=== PATIENT | male | born 1975 | race African-American/Black ===

== ENCOUNTER 2017-11-25 20:10 | Inpatient (IN) | payer MEDICAID ==
[~2017-11-25] VITALS: Ht 190.5 cm; Wt 59.4 kg
--- NOTE | 2017-11-25 21:26 | NUR ---
BEDSIDE FOR EVAL
--- NOTE | 2017-11-25 21:30 | NUR ---
PT BBSELF FROM HOME C/C RIGHT SIDED CHEST PAIN RADIATING TO THE BACK X 5 DAYS. PT STATES HE HAS BEEN HAVING A NON PRODUCTIVE COUGH X5 DAYS. PT IS AAOX4. SKIN WNL. PT DENIES SOB. NO S/S OF ACUTE DISTRESS NOTED. RESPIRATIONS EVEN AND UNLABORED. PT PLACED ON MEDICAL FRONT DESK COORDINATOR AND POX. PT SAFETY AND COMFORT MEASURES IN PLACE. WILL CONTINUE TO MONITOR PT.
[2017-11-25] MEDS ORDERED: oxyCODONE/APAP (5/325 MG) 1 UDTAB TABLET ONE (21:40)
[2017-11-25] MEDS ORDERED: IBUPROFEN 600 MG TABLET PO ONE ×2 (21:40→22:00)
[2017-11-25] MEDS ORDERED: oxyCODONE/APAP (5/325 MG) 1 UDTAB TABLET PO ONE (22:00)
[2017-11-25] MEDS ORDERED: FENTANYL PF 100MCG/2ML AMPUL IV ONE (22:00)
--- NOTE | 2017-11-25 22:02 | NUR ---
PER MD'S REQUEST, CHEST TUBE BEING SET UP BY EMT MELINA
[2017-11-25] MEDS ORDERED: FENTANYL PF 100MCG/2ML AMPUL ONE (22:08)
--- NOTE | 2017-11-25 22:15 | NUR ---
DR BALDWIN ACCEPTED PATIENT PER Fadumo HUYNH
--- NOTE | 2017-11-25 22:27 | NUR ---
CALLED NURSING SUP REQUESTING [facility] BED
--- NOTE | 2017-11-25 22:47 | NUR ---
PT ADMIT TO ROOM 104 PR[facility]
[2017-11-25] MEDS ORDERED: Z GUARD REMEDY 2 OZ OINT TP PRN (23:30)
[2017-11-25] MEDS ORDERED: MAGNESIUM HYDROXIDE 30 ML UDC PO PRN (23:30)
[2017-11-25] MEDS ORDERED: MAG HYDROX/AL HYDROX/SIMETH 30 ML UDC PO PRN (23:30)
[2017-11-25 23:39] LABS: BASOPHILS # (AUTO) 0.1 /CMM (0.0-0.2); BASOPHILS % (AUTO) 0.6 % (0.0-2.0); EOSINOPHILS % (AUTO) 0.3 % (0.0-6.0); HEMATOCRIT 37 % (39-51); LYMPHOCYTES # (AUTO) 0.9 /CMM (0.8-4.8); LYMPHOCYTES % (AUTO) 6.9 % (20.0-44.0); MEAN CORPUSCULAR HGB CONC 35 g/dl (31.0-36.0); MEAN CORPUSCULAR VOLUME 94 fL (80-96); MONOCYTES # (AUTO) 0.3 /CMM (0.1-1.30); MONOCYTES % (AUTO) 2.3 % (2.0-12.0); NEUTROPHILS % (AUTO) 89.9 % (43.0-81.0); PLATELET COUNT (AUTO) 180 /CMM (150-450); RED BLOOD CELL COUNT(AUTO) 3.98 MIL/uL (4.5-6.0); WHITE BLOOD COUNT (AUTO) 13.4 K/uL (4.3-11.0)
[2017-11-25] MEDS ORDERED: IOHEXOL-300 100 ML VIAL IV ONE (23:40)
[2017-11-25] MEDS ORDERED: CT SWABBABLE VALVE TRANS SET 1 EA INFUS.SET MC ONE (23:40)
[2017-11-25] MEDS ORDERED: IV NS 0.9% 250 ML IV ONE (23:41)
[2017-11-25 23:50] LABS: CALCIUM, SERUM 9.2 mg/dL (8.5-10.1); CARBON DIOXIDE 28 mmol/L (21-32); CHLORIDE 105 mmol/L (98-107); CREATININE 1.1 mg/dL (0.6-1.3); GLUCOSE 102 mg/dL (74-106); POTASSIUM 3.8 mmol/L (3.5-5.1); SODIUM SERUM 141 mmol/L (136-145); UREA NITROGEN, BLOOD 10 mg/dL (7-18)
[2017-11-25 23:52] LABS: INR 1.09 (0.87-1.13)
[2017-11-26] VITALS (46 sets, daily range): BP systolic 48–188; BP diastolic 18–118
[2017-11-26] LABS: TROPONIN I < 0.017 ng/mL (0.00-0.056)
[2017-11-26] MEDS ORDERED: VANCOMYCIN 1.25 GM in IV D5W 500 ML IV ONE (00:30)
[2017-11-26] MEDS ORDERED: HYDROMORPHONE 1 MG/1 ML DISP.SYRIN IV STA (01:29)
[2017-11-26] MEDS ORDERED: HYDROMORPHONE 1 MG/1 ML DISP.SYRIN ONE (01:46)
--- NOTE | 2017-11-26 02:01 | NUR ---
REPORT GIVEN TO PRASHANT MAJOR FOR LEIDY
--- NOTE | 2017-11-26 03:00 | NUR ---
PT REQUESTING FLU VACCINE, WILL NOTIFY
--- NOTE | 2017-11-26 03:47 | NUR ---
SPOKE TO MD BALDWIN, AWARE OF PT'S VS, HR IN 40'S, SB ON TELE MONITOR, VANCO 1.25 MG IVPB NOT AVAILABLE, MD WITH NEW ORDERS OF CHANGE VANCO TO 1GM FOLLOW BY PHARMACY TO DOSE IN AM, MORPHINE 2MG IVP Q 6HRS PRN, CONTINUE CHEST TUBE TO CONTINUOUS SUCTIONING 20 CM OF WATER, [facility] CHANGED, CHEST TUBE DRAINING BLOOD. PT DENIES PAIN OR DISCOMFORT AT THIS TIME. GIRLFRIEND AT BEDSIDE.
[2017-11-26] MEDS ORDERED: MORPHINE SULFATE INJ 2 MG/ML DISP.SYRIN IV PRN (04:00)
[2017-11-26] MEDS ORDERED: VANCOMYCIN 1 GM in IV D5W 250 ML IV ONE (04:00)
[2017-11-26] MEDS ORDERED: VANCOMYCIN 1 GM VIAL ONE (04:12)
[2017-11-26] MEDS ORDERED: CEFEPIME 2 GM in IV NS 0.9% 50 ML IV SCH (05:00)
--- NOTE | 2017-11-26 06:14 | NUR ---
MAXIPIME IVPB DUE AT 5 AM NOT AVAILABLE PER NURSING MOCK UP ASSEMBLER, WILL BE ADMINISTERED BY AM SHIFT.
[2017-11-26 06:40] LABS: BASOPHILS % (AUTO) 0.2 % (0.0-2.0); EOSINOPHILS % (AUTO) 0.1 % (0.0-6.0); HEMATOCRIT 33 % (39-51); HEMOGLOBIN 11.1 g/dL (13.5-17.5); LYMPHOCYTES # (AUTO) 0.9 /CMM (0.8-4.8); LYMPHOCYTES % (AUTO) 5.9 % (20.0-44.0); MEAN CORPUSCULAR HGB CONC 34 g/dl (31.0-36.0); MEAN CORPUSCULAR VOLUME 94 fL (80-96); MONOCYTES # (AUTO) 0.7 /CMM (0.1-1.30); MONOCYTES % (AUTO) 4.9 % (2.0-12.0); NEUTROPHILS # (AUTO) 13.4 /CMM (1.8-8.9); NEUTROPHILS % (AUTO) 88.9 % (43.0-81.0); PLATELET COUNT (AUTO) 199 /CMM (150-450); RDW COEFFICIENT OF VARIATION 13.5 (11.5-15.0); WHITE BLOOD COUNT (AUTO) 15.1 K/uL (4.3-11.0)
--- NOTE | 2017-11-26 07:05 | NUR ---
PRASH[facility] RN NOTES RECEIVED PT ON BED.ALERT AND ORIENTED X4.HAS CONTINUOS 2L O2 VIA NASAL CANNULA WITH UNLABORED BREATHING.ON TELE SINUS RHYTHM WITH HR 75,IV CANNULA ON LEFT AC G18 ,DRY,INTACT AND NO INFILTRATION.HAS CHEST TUBE ON RIGHT LOWER RIB WITH LOW CONTINUOS 20CM H20 SUCTION,SITE CLEAN AND DRY.SUPPORTIVE FAMILY IS AT BEDSIDE.CALL LIGHT IS WITH IN EASY REACH. BED IS IN LOWEST POSITION AND LOCKED.WILL CONTINUE TO MONITOR CLOSELY.
[2017-11-26 07:07] LABS: ALBUMIN 3.6 g/dL (3.4-5.0); BILIRUBIN,TOTAL 1.1 mg/dL (0.2-1.0); CALCIUM, SERUM 8.3 mg/dL (8.5-10.1); CREATININE 1.2 mg/dL (0.6-1.3); MAGNESIUM 1.7 mg/dL (1.8-2.4); PHOSPHORUS 4.2 mg/dL (2.5-4.9); POTASSIUM 4.2 mmol/L (3.5-5.1); TOTAL PROTEIN, SERUM 6.3 g/dL (6.4-8.2)
[2017-11-26] MEDS: HYDROCODONE/APAP 5/325MG 1 EACH TABLET PO PRN ×2 (08:02→12:27)
[2017-11-26] MEDS ORDERED: FEE PK DOSING 1 MIN EA MC ONE (08:11)
[2017-11-26] MEDS ORDERED: MORPHINE SULFATE INJ 4 MG/ML DISP.SYRIN IV PRN (08:14)
[2017-11-26] MEDS: ONDANSETRON HCL/PF 4 MG/2 ML VIAL IVP PRN (08:41)
[2017-11-26] MEDS: Magnesium 1GM/D5W 100ML PREMIX 100 ML IV SCH ×4 (10:35→23:45)
--- NOTE | 2017-11-26 10:35 | NUR ---
[facility] RN NOTES NOTED WITH MG-1.7.DR JAYA ABEL ORDERED TO GIVE MAGNESIUM IV 2GM @100 ML/HR EACH.STARTED IV MAGNESIUM 1GM NOW.
--- NOTE | 2017-11-26 10:54 | NUR ---
PRASH[facility] RN NOTES PT SCHEDULED FOR FLU VACCINE TODAY. PER DR.LAURENE ABEL,HOLD FLU VACCINE NOW.NEW ORDERS NOTED AND CARRIED OUT.
--- NOTE | 2017-11-26 13:00 | NUR ---
RN NOTES PT IS A/O x4, BUT DIAPHORETIC, O2 SAT 100%, BP =97/46, T-97.6, R 27, ARIELLE CONSUMER ADVOCATE NOTIFED , ABOUT 650CC LIGHT BLOODY DRAINAGE FROM CHEST TUBE, CONTINUE TO MONITOR
[2017-11-26] MEDS: CEFEPIME 2 GM in IV D5W 100 ML IV SCH ×2 (13:08→20:05)
--- NOTE | 2017-11-26 13:19 | NUR ---
RN NOTES ORDER RECEIVED TO TRANSFER PT TO ICU AT THIS TIME FOR CLOSE OBSERVATION .
[2017-11-26] MEDS: IV NS 0.9% 1,000 ML IV SCH ×2 (13:30→19:06)
[2017-11-26 13:37] LABS: ABG BASE EXCESS -1.9 mmol/L; ABG PCO2 43.6 mmHg (35.0-45.0); ABG PH 7.353 (7.350-7.450); ABG PO2 116.4 mmHg (75.0-100.0); AaDO2 118.7 mmHg; COHb 0.2 % (0.5-1.5); MetHb 0.7 % (0.0-1.5); O2Hb 96.1 % (94.0-97.0); SITE, ABG Right Radial; VENT MODE, BG NASAL CANNULA
--- NOTE | 2017-11-26 13:40 | NUR ---
RN NOTES PT TRANSFERRED TO ROOM 259 ICU STATUS , VIA ACLS PROTOCOL , REPORT GIVEN TO ROMEO PALAFOX .
--- NOTE | 2017-11-26 13:45 | NUR ---
PHARMACIST HOSPITAL RECEIVED PATIENT FROM [facility]. PATIENT NOTED TO BE HYPOTENSIVE, DIAPHORETIC, BUT ALERT TO VERBAL COMMAND. SPLUNK DASHBOARD DEVELOPER AT BEDSIDE. CHEST TUBE TO WALL SUCTION. ARNETT DRAINING URINE TO GRAVITY. RAPID TRANSFUSION PROTOCOL INITIATED. IV FLUIDS RUNNING FOR BP SUPPORT. TO BE SEEN BY DIGITAL PERFORMANCE ANALYST AND SURGEON. WILL CONTINUE TO MONITOR AND PROVIDE CARE.
[2017-11-26 13:46] LABS: BASOPHILS # (AUTO) 0.1 /CMM (0.0-0.2); BASOPHILS % (AUTO) 0.3 % (0.0-2.0); EOSINOPHILS % (AUTO) 0.1 % (0.0-6.0); HEMATOCRIT 31 % (39-51); LYMPHOCYTES # (AUTO) 1.2 /CMM (0.8-4.8); LYMPHOCYTES % (AUTO) 6.3 % (20.0-44.0); MEAN CORPUSCULAR HGB CONC 33 g/dl (31.0-36.0); MEAN CORPUSCULAR VOLUME 95 fL (80-96); MONOCYTES # (AUTO) 0.7 /CMM (0.1-1.30); MONOCYTES % (AUTO) 3.7 % (2.0-12.0); NEUTROPHILS # (AUTO) 16.6 /CMM (1.8-8.9); NEUTROPHILS % (AUTO) 89.6 % (43.0-81.0); PLATELET COUNT (AUTO) 192 /CMM (150-450); RED BLOOD CELL COUNT(AUTO) 3.25 MIL/uL (4.5-6.0); WHITE BLOOD COUNT (AUTO) 18.5 K/uL (4.3-11.0)
[2017-11-26] MEDS ORDERED: IV NS 0.9% 1,000 ML IV PRN ×2 (14:00→16:00)
[2017-11-26] MEDS ORDERED: NOREPINEPHRINE 16 MG in IV D5W 500 ML IV PRN (14:00)
--- NOTE | 2017-11-26 14:00 | NUR ---
ICU/RN: Tomasa Muñoz NP gave primary and discharge door operator bedside report. Pt hypotensive, ST in 130-140; blood products and IV resuscitation fluids ordered. Pt diaphoretic, with rigors. Pulses on extremities strong and palpable. IV HL inserted on L FA #20 with NS infusing. Pt on 1:1 monitoring as ordered.
--- NOTE | 2017-11-26 14:02 | NUR ---
PER ARIELLE ABEL GIVE 2L NS BOLUS WIDE OPEN. ORDER FOR ARTERIAL LINE. ORDER LEVOPHED FOR LOW BLOOD PRESSURE. COLTEN AT BEDSIDE.
[2017-11-26] MEDS ORDERED: FENTANYL PF 100MCG/2ML AMPUL IV PRN (14:30)
[2017-11-26] MEDS ORDERED: FENTANYL PF 100MCG/2ML AMPUL IV STA (14:32)
[2017-11-26] MEDS ORDERED: LIDOCAINE 2%-EPI 1:100,000 30 ML VIAL TP STA (14:35)
--- NOTE | 2017-11-26 15:00 | NUR ---
ICU/RN: Pt s/p A-line, central line insertion by Escobar Monroy. Pt tolerated procedure well. Ongoing blood transfusion and NS bolus via Rapid infusion. No adverse reactions noted. Pt remains in ST 130-140's with initial BP in 50's. Levophed on standby per KALANI Muñoz. Dr Meng and Dr Klein examined pt. New orders noted and carried out.
[2017-11-26 15:16] LABS: ABG BASE EXCESS -9.2 mmol/L; ABG PCO2 42.9 mmHg (35.0-45.0); ABG PH 7.233 (7.350-7.450); ABG PO2 138.5 mmHg (75.0-100.0); AaDO2 242.1 mmHg; COHb 0.2 % (0.5-1.5); MetHb 1.1 % (0.0-1.5); O2Hb 95.7 % (94.0-97.0); SITE, ABG A-Line
[2017-11-26 15:21] LABS: HEMOGLOBIN 7.6 g/dL (13.5-17.5)
[2017-11-26] MEDS ORDERED: MEPERIDINE HCL/PF 50 MG/ML DISP.SYRIN IV ONE (15:30)
[2017-11-26] MEDS ORDERED: VANCOMYCIN 1.25 GM in IV D5W 500 ML IV SCH (16:00)
[2017-11-26] MEDS ORDERED: IV NS 0.9% 1,000 ML IV STA (16:03)
[2017-11-26 16:15] LABS: LYMPHOCYTES % (MANUAL) 5 % (16-48); MONOCYTES % (MANUAL) 6 % (0-11.0); NEUTROPHILS % (MANUAL) 89 (42-76)
[2017-11-26 16:45] LABS: BASOPHILS % (AUTO) 0.1 % (0.0-2.0); HEMATOCRIT 27 % (39-51); LYMPHOCYTES # (AUTO) 0.3 /CMM (0.8-4.8); MEAN CORPUSCULAR HGB CONC 33 g/dl (31.0-36.0); MEAN CORPUSCULAR VOLUME 92 fL (80-96); MONOCYTES # (AUTO) 0.6 /CMM (0.1-1.30); MONOCYTES % (AUTO) 5.7 % (2.0-12.0); NEUTROPHILS % (AUTO) 91.2 % (43.0-81.0); RDW COEFFICIENT OF VARIATION 14.1 (11.5-15.0); RED BLOOD CELL COUNT(AUTO) 2.99 MIL/uL (4.5-6.0); WHITE BLOOD COUNT (AUTO) 9.9 K/uL (4.3-11.0)
[2017-11-26 16:55] LABS: PLATELET COUNT (AUTO) 63 /CMM (150-450)
--- NOTE | 2017-11-26 16:57 | NUR ---
PER ARIELLE ABEL ORDER 1 UNIT PLATELETS S/T PLATELET COUNT OF 63.
--- NOTE | 2017-11-26 17:45 | NUR ---
ICU/RN: Pt sent to surgery in stable condition: S/P infusion of 12 L NS Bolus, 6 Unit PRBC, 3 FFP, 1 unit platelet; Tomasa Muñoz BODY AND FENDER WORKER at bedside. Pt now awake, alert, drowsy, denies pain or distress, on O2 2L/min via NC. R subclavian TLC patent, flushed, NS @ 75cc/hr running. A-line zero'd calibrated per protocol with good waveform. FC draining clear yellow urine to gravity with 1300cc out pre-op. Total of 560cc sanguineous CT output. Pt seen and examined prior to Sx by: Dr Meng - latest labs, transfusion totals, poc discussed with MD with Wanda, KALANI Burgos - pt agreeable to surgery, poc discussed extensively with pt. note: last unit of PRBC verified and scanned - however did not save into [facility]. Override noted in system with RN who previously verified blood product with primary RN. Addendum: 11/26/17 at 1920 by MARQUES BECKWITH RN Per KALANI Muñoz: "No need to administer remaining blood products. Transfuse only a total of 6U PRBC, 3 FFP, 1U Plt, keep remaining blood products for standby for OR."
[2017-11-26] MEDS: IV NS 0.9% 1,000 ML IV PRN ×7 (17:47→17:54)
--- NOTE | 2017-11-26 18:57 | NUR ---
RN NOTES RECEIVED PATIENT ALERT, AWAKE, DIAPHORETIC, RESPOND TO BOTH VERBAL AND TACTILE STIMULI. TELE MONITOR REVEALS ST, WN=[phone]'[id number], SBP=80'S. ARIELLE URIARTE AT BEDSIDE. IV L HAND PATENT AND INTACT. RUNNING IVF PER ORDER. RECEIVED NEW ORDER OF BLOOD TRANSFUSION AND IV RESUSCITATION. WILL CONT TO MONITOR. Addendum: 11/26/17 at 1904 by ROMEO COELLO RN NOTES TIME 1400.
--- NOTE | 2017-11-26 19:15 | NUR ---
ICU/RN: Report given to Kings, RN for LEIDY. Updated regarding surgery. Endorsed to f/u Vanco dose [unable to administer dt ongoing boluses and blood tx, surgery].
[2017-11-26] MEDS ORDERED: PROPOFOL 100 ML ONE (19:29)
--- NOTE | 2017-11-26 19:39 | NUR ---
PACKAGING ENGINEER NOTES RECEIVED PATIENT FROM OR, S/P RIGHT SIDE VATS, EVACUATION OF HEMOTHORAX + RUL BLEB RESECTION. R CHEST TUBE REMAINS IN PLACE, DRAINING SANGUINOUS OUTPUT, CONNECTED TO SUCTION ORDERED. RIGHT SUBCLAVIAN TLC PATENT AND INTACT, INITIATED ON CVP MONITORING. ALSO INFUSING DIPRIVAN, WILL CONTINUE HERE IN ICU AND TITRATE NEEDED. ALSO NOTED WITH RIGHT FEMORAL ARTERIAL LINE. WILL CARRY OUT ALL POSTOP ORDERS AND CLOSELY MONITOR
[2017-11-26] MEDS: HYDROMORPHONE 1 MG/1 ML DISP.SYRIN IV PRN ×2 (19:46→22:29)
[2017-11-26] MEDS ORDERED: HYDROMORPHONE 1 MG/1 ML DISP.SYRIN IV PRN (20:00)
[2017-11-26] MEDS: PROPOFOL 100 ML IV PRN ×2 (20:06→22:40)
--- NOTE | 2017-11-26 20:27 | NUR ---
@1943 RECEIVED PT FROM O.R. PT IS ORALLY INTUBATED WITH 8.0 ETT SECURED AT 26CM AT THE LIP. RN AND MD AT BEDSIDE. PLACED ON VENT PER HRONEYoko, SETTINGS AC 12,600,100%,+5. VENT ALARMS SET AND AUDIBLE. AMBU BAG AT BEDSIDE. ETT SECURED VIA ANCHOR FAST. WILL CONTINUE TO MONITOR.
--- NOTE | 2017-11-26 20:40 | NUR ---
EMERGENCY NURSE NOTES RECEIVED CALL FROM AMINTA MAKI DNP. UPDATE GIVEN REGARDING PATIENTS CONDITION. AMINTA MAKI WITH ORDERS FOR STAT LABS: CBC, CMP, MAGNESIUM, PHOSPHOROUS, AND FIBRINOGEN LEVEL. ORDERS READ BACK FOR CLARIFICATION. WILL CARRY OUT ALL NEW ORDERS AND CONTINUE TO CLOSELY MONITOR THE PATIENT
[2017-11-26 20:50] LABS: ABG BASE EXCESS -7.1 mmol/L; ABG OXYGEN SATURATION 98.1 % (92.0-98.5); ABG PH 7.236 (7.350-7.450); ABG PO2 229.2 mmHg (75.0-100.0); AaDO2 434.8 mmHg; COHb 0.3 % (0.5-1.5); MetHb 0.9 % (0.0-1.5); O2Hb 96.9 % (94.0-97.0); PEEP,BG 5 cm H2O; SITE, ABG A-Line
--- NOTE | 2017-11-26 20:51 | NUR ---
POST ABG ON VENT DONE. RN NOTIFIED WITH THE RESULT.
--- NOTE | 2017-11-26 21:15 | NUR ---
TESTER REGULATOR NOTES ABG RESULTS RELAYED TO AMINTA MAKI DNP. RECEIVED ORDER TO INCREASE RATE TO 16, AND DECREASE FIO2 TO 70%. RT DENYS MADE AWARE OF ORDERS FOR VENT CHANGES.
--- NOTE | 2017-11-26 21:18 | NUR ---
RATE CHANGED TO 16 AND FIO2 TO 70% PER DR MAKI. RN NOTIFIED.
[2017-11-26 21:21] LABS: BASOPHILS # (AUTO) 0.1 /CMM (0.0-0.2); BASOPHILS % (AUTO) 0.5 % (0.0-2.0); HEMATOCRIT 32 % (39-51); HEMOGLOBIN 10.9 g/dL (13.5-17.5); LYMPHOCYTES # (AUTO) 0.4 /CMM (0.8-4.8); LYMPHOCYTES % (AUTO) 2.8 % (20.0-44.0); MEAN CORPUSCULAR HGB CONC 34 g/dl (31.0-36.0); MEAN CORPUSCULAR VOLUME 89 fL (80-96); MONOCYTES # (AUTO) 0.5 /CMM (0.1-1.30); MONOCYTES % (AUTO) 3.8 % (2.0-12.0); NEUTROPHILS % (AUTO) 92.9 % (43.0-81.0); PLATELET COUNT (AUTO) 83 /CMM (150-450); RDW COEFFICIENT OF VARIATION 13.5 (11.5-15.0); RED BLOOD CELL COUNT(AUTO) 3.61 MIL/uL (4.5-6.0)
[2017-11-26 21:51] LABS: ALBUMIN 2.5 g/dL (3.4-5.0); BILIRUBIN,TOTAL 0.7 mg/dL (0.2-1.0); CALCIUM, SERUM 6.3 mg/dL (8.5-10.1); MAGNESIUM 1.4 mg/dL (1.8-2.4); PHOSPHORUS 2.7 mg/dL (2.5-4.9); POTASSIUM 4.8 mmol/L (3.5-5.1); TOTAL PROTEIN, SERUM 4.6 g/dL (6.4-8.2)
[2017-11-26] MEDS ORDERED: Calcium Gluconate 0.465 MEQ/ML VIAL IV ONE (22:30)
[2017-11-26] MEDS: VANCOMYCIN 1.25 GM in IV D5W 500 ML IV SCH (22:30)
[2017-11-26] MEDS: IV D5/0.45 NACL W/20 MEQ KCL 1L IV PRN ×2 (22:30)
[2017-11-26 23:38] LABS: BAND % (MANUAL) 2 % (0.0-5.0); LYMPHOCYTES % (MANUAL) 2 % (16-48); MONOCYTES % (MANUAL) 1 % (0-11.0); NEUTROPHILS % (MANUAL) 95 (42-76)
[2017-11-27] VITALS (40 sets, daily range): BP systolic 91–156; BP diastolic 43–85
[2017-11-27] MEDS: Magnesium 1GM/D5W 100ML PREMIX 100 ML IV SCH ×2 (00:48→02:00)
--- NOTE | 2017-11-27 02:00 | NUR ---
CLOSET BUILDER NOTES 4 GRAMS OF MAGNESIUM IV REPLACEMENT INFUSED PER AMINTA MAKI'S ORDERS, WELL CALCIUM GLUCONATE X 1 VIAL. WILL CONTINUE TO CLOSELY MONITOR AND CARRY OUT ALL ORDERS
[2017-11-27] MEDS: PROPOFOL 100 ML IV PRN (03:42)
[2017-11-27] MEDS: HYDROMORPHONE 1 MG/1 ML DISP.SYRIN IV PRN ×3 (03:51→17:50)
[2017-11-27] MEDS: CEFEPIME 2 GM in IV D5W 100 ML IV SCH ×3 (04:42→20:22)
[2017-11-27 04:49] LABS: BASOPHILS % (AUTO) 0.1 % (0.0-2.0); HEMATOCRIT 26 % (39-51); HEMOGLOBIN 8.6 g/dL (13.5-17.5); LYMPHOCYTES # (AUTO) 0.8 /CMM (0.8-4.8); LYMPHOCYTES % (AUTO) 6.1 % (20.0-44.0); MEAN CORPUSCULAR HGB CONC 33 g/dl (31.0-36.0); MEAN CORPUSCULAR VOLUME 91 fL (80-96); MONOCYTES # (AUTO) 0.6 /CMM (0.1-1.30); MONOCYTES % (AUTO) 4.9 % (2.0-12.0); NEUTROPHILS # (AUTO) 11.4 /CMM (1.8-8.9); NEUTROPHILS % (AUTO) 88.9 % (43.0-81.0); PLATELET COUNT (AUTO) 75 /CMM (150-450); RDW COEFFICIENT OF VARIATION 14.3 (11.5-15.0); RED BLOOD CELL COUNT(AUTO) 2.84 MIL/uL (4.5-6.0); WHITE BLOOD COUNT (AUTO) 12.8 K/uL (4.3-11.0)
[2017-11-27 05:06] LABS: ALBUMIN 2.1 g/dL (3.4-5.0); BILIRUBIN,TOTAL 0.5 mg/dL (0.2-1.0); CREATININE 0.9 mg/dL (0.6-1.3); MAGNESIUM 2.8 mg/dL (1.8-2.4); PHOSPHORUS 1.6 mg/dL (2.5-4.9); POTASSIUM 4.1 mmol/L (3.5-5.1); TOTAL PROTEIN, SERUM 3.9 g/dL (6.4-8.2)
--- NOTE | 2017-11-27 07:00 | NUR ---
FRONT OFFICE MEDICAL ASSISTANT NOTES RIGHT SIDE CHEST TUBE WITH TOTAL OUTPUT OF 130ML OF SANGUINOUS FLUID. REMAINS ON DIPRIVAN @ 50MCG/KG/MIN. WILL ENDORSE THE PATIENT TO THE AM SHIFT NURSE FOR CONTINUITY OF CARE
--- NOTE | 2017-11-27 07:15 | NUR ---
TICKET SELLER NOTES RECEIVED PATIENT SEDATED , RESPONSIVE TO DEEP PAIN STIMULI, NOT IN ACUTE DISTRESS , RESPIRATIONS EVEN AND UNLABORED WITH SPO2 OF 100% , ETT 8.0/[address] , SB 55 ON BEDSIDE MONITOR , FC DRAINING VIA GRAVITY WITH CLEAR YELLOW URINE , RIGHT SUBCLAVIAN TLC WITH DIPRIVAN @ 50MCG/KG/MIN , D5 1/2 NS WITH 20MEQ KCL @ 75ML/HR INFUSING WELL , CVP ATTACHED WITH GOOD WAVE FORM WITH CVP READINGS OF 3-4 , RIGHT FEMORAL A LINE PATENT AND INTACT WITH GOOD BONNY FORM , RIGHT CHEST TUBE INTACT DRAINING VIA -20MMHG SUCTION WITH NO AIR LEAK , DRESSING C/D/I DRAINING WITH SEROSANGUINEOUS OUTPUT , WILL CONTINUE TO MONITOR
[2017-11-27 08:01] LABS: BAND % (MANUAL) 2 % (0.0-5.0); LYMPHOCYTES % (MANUAL) 6 % (16-48); MONOCYTES % (MANUAL) 4 % (0-11.0); NEUTROPHILS % (MANUAL) 88 (42-76)
[2017-11-27] MEDS ORDERED: DC PROPOFOL WHEN EXTUBATED XX PRN ×2 (09:00→11:30)
--- NOTE | 2017-11-27 09:00 | NUR ---
RIBBON LAPPER TENDER NOTES PT OFF SEDATION , CALM AND COOPERATIVE , ABLE TO FOLLOW COMMANDS , NOT IN ACUTE DISTRESS , SPO2 OF 10% VIA MECHANICAL VENTILATOR , WILL CONTINUE TO MONITOR .
--- NOTE | 2017-11-27 09:45 | NUR ---
BULK SAUSAGE CASING TIER OFF NOTES SEEN AND EVALUATED BY DR DEUTSCH ,DISCUSSED LABS , CHEST XRAY , CURRENTLY OFF SEDATION WITH STABLE V/S , NO SIGNS OF DISTRESS , SPO2 OF 100% VIA MECHANICAL VENT SETTINGS ORDERED ,ABLE TO FOLLOW COMMANDS , NOTED CELSA ORBITAL EDEMA , CHEST TUBE NO AIR LEAK NOTED , DRAINING WITH SEROSANGUINEOUS FLUID 130-150ML OUT ,VIA -20MMHG SUCTION , MD AWARE , ORDER TO PLACE PT ON SIMV RATE 4 PSV 15 AND PEEP OF 5 AND OBTAIN ABG AFTER 30 MINUTES . ORDERS CARRIED OUT .
[2017-11-27] MEDS: VANCOMYCIN 1.25 GM in IV D5W 500 ML IV SCH (09:46)
[2017-11-27 10:49] LABS: ABG BASE EXCESS -2.2 mmol/L; ABG OXYGEN SATURATION 96.9 % (92.0-98.5); ABG PCO2 40.2 mmHg (35.0-45.0); ABG PH 7.372 (7.350-7.450); ABG PO2 109.9 mmHg (75.0-100.0); AaDO2 129.1 mmHg; COHb 0.2 % (0.5-1.5); MetHb 0.9 % (0.0-1.5); O2Hb 95.8 % (94.0-97.0); PEEP,BG 5 cm H2O; SITE, ABG A-Line; VENT MODE, BG SIMV PS 15; VT, ABG 600 mL
--- NOTE | 2017-11-27 10:55 | NUR ---
MACARONI PRESS OPERATOR NOTES NOTIFIED DR DEUTSCH REGARDING ABG RESULT , SEEN AND EVALUATED BY DR DEUTSCH AT BEDSIDE AND ORDERED TO EXTUBATE THE PATIENT , RT GUI NOTIFIED , WILL CONTINUE TO MONITOR
--- NOTE | 2017-11-27 11:00 | NUR ---
BANK RUNNER NOTES PATIENT STABLE S/P EXTUBATION , TOLERATED WELL , WITH NO SIGNS OF DISTRESS , SUCTION PATIENT VIA ETT AND ORALLY FOR AIRWAY CLEARANCE , PLACED ON 4LPM NC SPO2 OF 95-100% , PER MD DISCONTINUE A LINE AND CVP MONITORING , OK TO HAVE ICE CHIPS AND START CLEAR LIQUID DIET AND ADVANCE TOLERATED .
[2017-11-27] MEDS ORDERED: K PHOS NEUTRAL 250 MG TABLET PO ONE (12:00)
[2017-11-27] MEDS: IV D5/0.45 NACL W/20 MEQ KCL 1L IV PRN ×2 (12:02)
[2017-11-27 12:25] LABS: HEMOGLOBIN 9.9 g/dL (13.5-17.5)
--- NOTE | 2017-11-27 15:29 | NUR ---
FORM PRESSER NOTES CHEST TUBE DRESSING CHANGED , NOTED WITH MODERATE AMOUNT OF SEROSANGUINEOUS OUTPUT , NO AIR LEAK NOTED , WILL CONTINUE TO MONITOR . Addendum: 11/27/17 at 1533 by GENE PHAM RN DR GET GOODE MD AWARE ,
--- NOTE | 2017-11-27 15:51 | NUR ---
REFLECTOR DRILLER AND DEBURRER NOTES DARLENE THOMPSON AT BEDSIDE , DISCUSSED REPEAT H/H RESULT , PT ON 4LPM NC SPO2 OF 100% WITH NO SIGNS OF DISTRESS , CHEST TUBE DRAINING VIA - 20MMHG SUCTIONED WITH SEROSANGUINEOUS OUTPUT , PER VENEER DRIER TAILER START PT ON PHYSICAL THERAPY AND INCENTIVE SPIROMETER TOMORROW
[2017-11-27] MEDS: HYDROCODONE/APAP 5/325MG 1 EACH TABLET PO PRN ×2 (16:12→20:24)
[2017-11-27] MEDS: LACTOBACILLUS RHAMNOSUS GG 1 EACH CAP.SPRINK PO SCH (16:13)
--- NOTE | 2017-11-27 18:21 | NUR ---
RT END OF THE SHIFT REPORT: PT. 42 Y OLD MALE REC. ORALLY INTUBATED ETT # 8.0 @ 26 CM LIP LINE ON VENT WITH NOTED SETTINGS, @ [address] DEUTSCH AT THE BEDSIDE. SIMV,4,PS15,40%+5 SX'D FOR MOD AMT OF THICK/THIN HAGEN SECRETIONS. VENT ALARMS SET AND FUNCTIONAL. B/S RALES/CLEAR ON BASES. AND RN AT THE BEDSIDE. INFORMED ALL THE CHANGES. @1100 X3 RT AT THE BEDSIDE. EXTUBATED PER DR. DEUTSCH AT TH BEDSIDE. PLACED ON 4L/MIN N/C (HR 99 SPO2 100%) B/S FINE/ CLEAR, NO STRIDOR NOTED. AMBU BAG AT BEDSIDE. ((( VENT PLUGGED INTO RED OUTLET. STAND BY PER MD ORDER LEAVE IN THE ROOM))) PT. REMAIN STABLE. T/O DAY. WILL CONTINUE TO MONITOR. REPORT WILL PASS TO PM SHIFT. Addendum: 11/27/17 at 1829 by GUI IZAGUIRRE RT Amended: Links added.
--- NOTE | 2017-11-27 19:32 | NUR ---
ROOM ATTENDANT. INITIAL ASSESSMENT. RECEIVED THE PT REST ON THE BED. AWAKE, ALERT, FOLLOW COMMANDS. DIESEL MECHANIC HELPER SHOWING S WILD. OXYGEN 4L VIA NASAL CANNULA. SAT 98%. NO ACUTE DISTRESS NOTED. IV RT SUBCLAVIAN IVF D51/2NSIN POTASSIUM 20MEQ@75ML/H. FC PATENT. URINE DRAINING. RT SIDE CHEST TUBE INTACT. TUBE IS SECURED, NO AIR LEAK NOTED. DRESSING INTACT, DRESSING IS DRY. WILL CONTINUE TO MONITOR VITALS.
[2017-11-27] MEDS: ONDANSETRON HCL/PF 4 MG/2 ML VIAL IVP PRN (22:26)
[2017-11-27] MEDS: ZOLPIDEM TARTRATE 5 MG TABLET PO PRN (22:26)
[2017-11-28] VITALS (22 sets, daily range): BP systolic 122–156; BP diastolic 60–87
[2017-11-28] MEDS: IV D5/0.45 NACL W/20 MEQ KCL 1L IV PRN ×6 (02:49→19:35)
--- NOTE | 2017-11-28 03:20 | NUR ---
COMMERCIAL BAKING TEACHER. AM CARE, ORAL CARE, BED BATH GIVEN. LINEN CHANGED, REMAINING SAME OXYGEN TOLERATED WELL. SAT 98%. NO ACUTE DISTRESS NOTED. TONGUE TRIMMER SHOWING NSR. IV RT SUBCLAVIAN TRIPLE LUMEN. IVF D51/2NS IN 20MEQ POTASSIUM 75ML/H. FC PATENT. URINE DRAINING. RT SIDE CHEST TUBE INTACT. CHEST TUBE SECURED. NO LEAKING NOTED. HOB ELEVATED, TURN AND REPOSITION Q2H. WILL CONTINUE TO MONITOR VITALS.
[2017-11-28 04:56] LABS: BASOPHILS % (AUTO) 0.2 % (0.0-2.0); CALCIUM, SERUM 7.9 mg/dL (8.5-10.1); CREATININE 0.8 mg/dL (0.6-1.3); EOSINOPHILS % (AUTO) 1.6 % (0.0-6.0); HEMATOCRIT 27 % (39-51); HEMOGLOBIN 9.1 g/dL (13.5-17.5); LYMPHOCYTES # (AUTO) 0.7 /CMM (0.8-4.8); LYMPHOCYTES % (AUTO) 7.7 % (20.0-44.0); MEAN CORPUSCULAR HGB CONC 34 g/dl (31.0-36.0); MEAN CORPUSCULAR VOLUME 92 fL (80-96); MONOCYTES # (AUTO) 0.5 /CMM (0.1-1.30); MONOCYTES % (AUTO) 5.7 % (2.0-12.0); NEUTROPHILS # (AUTO) 7.3 /CMM (1.8-8.9); NEUTROPHILS % (AUTO) 84.8 % (43.0-81.0); PLATELET COUNT (AUTO) 83 /CMM (150-450); POTASSIUM 3.6 mmol/L (3.5-5.1); RDW COEFFICIENT OF VARIATION 14.8 (11.5-15.0); RED BLOOD CELL COUNT(AUTO) 2.93 MIL/uL (4.5-6.0); WHITE BLOOD COUNT (AUTO) 8.7 K/uL (4.3-11.0)
[2017-11-28] MEDS: CEFEPIME 2 GM in IV D5W 100 ML IV SCH ×3 (05:17→21:08)
[2017-11-28] MEDS: HYDROMORPHONE 1 MG/1 ML DISP.SYRIN IV PRN ×3 (05:17→22:53)
[2017-11-28 06:00] LABS: BAND % (MANUAL) 1 % (0.0-5.0); EOSINOPHILS % (MANUAL) 1 % (0-4); LYMPHOCYTES % (MANUAL) 9 % (16-48); MONOCYTES % (MANUAL) 6 % (0-11.0); NEUTROPHILS % (MANUAL) 83 (42-76)
--- NOTE | 2017-11-28 07:40 | NUR ---
ICU/RN: Dr Burgos at bedside, discussed POC with pt. Per MD, keep pt CT on water seal only; d/c suction, pt is cleared for lower level of care.
[2017-11-28] MEDS: LACTOBACILLUS RHAMNOSUS GG 1 EACH CAP.SPRINK PO SCH ×2 (08:35→16:07)
--- NOTE | 2017-11-28 10:00 | NUR ---
ICU/RN: Dr Klein at bedside, no distress noted. Cleared for downgrade to [facility].
--- NOTE | 2017-11-28 10:45 | NUR ---
ICU/RN: Pt s/p PT carter, tolerated well. Ambulated in hallway, no SOB noted on RA. Assisted back to bed. Family at bedside
[2017-11-28] MEDS: HYDROCODONE/APAP 5/325MG 1 EACH TABLET PO PRN (11:11)
--- NOTE | 2017-11-28 11:15 | NUR ---
ICU/RN: Dr Burgos notified of CXR results; no new orders, per MD keep on water seal
--- NOTE | 2017-11-28 14:00 | NUR ---
ICU/RN: Pt resting in bed comfortably, pain management effective.
--- NOTE | 2017-11-28 17:30 | NUR ---
ICU/RN: Pt transferred to [facility] 112-[address] set to water seal, dressing C/D/I, with 125cc serosanguineous drainage for entire shift, no distress noted. Per pt, dilaudid effective in managing pain. Bedside report given to VIVIENNE Stark for LEIDY.
--- NOTE | 2017-11-28 18:00 | NUR ---
MS RN RECEIVED ON BED, A NEW TRANSFER FROM ICU,DX. RESPIRATORY FAILURE W/ PNEUMOTHORAX, CAME IN W/ RIGHT THORACOSTOMY TUBE IN WATER SEAL ONLY, W/ SERUSANGUENOUS OUTPUR, ARNETT CATHETHER INTACT, WILL MONITOR PATIENT'S CONDITION.
--- NOTE | 2017-11-28 19:00 | NUR ---
rECEIVED PATIENT AWAKE,ALERT,CONVERSES,COHERENT AND APPROPRIATE,NOT IN ANY DISTRESS.WITH CHEST TUBE @ RIGHT MID AXILLARY TO GRAVITY DRAINAGE(OFF SUCTION) WITH SEROSANGUINOS (ALL TUBINGS INTACT AND PATENT) DRESSING DRY AND INTACT.ONLY C/O PAIN AT CHEST TUBE SITE WHEN MOVING /TURNING.COMFORT CARE DONE,NEEDS ATTENDED.TLC @ RIGHT SC ,INTACT ,ALL PORTS WITH GOOD BLOOD RETURN.
[2017-11-29] VITALS (7 sets, daily range): BP systolic 132–143; BP diastolic 76–83
--- NOTE | 2017-11-29 | NUR ---
REMAINS STABLE,NO SOB,CHEST TUBE DRAINING WELL,NOT IN ANY DISTRESS.STATES MORE COMFORTABLE SITTING UPRIGHT ,ENCOURAGED TO TURN TO SIDES ,REFUSED AT THIS TIME. 0200 ASLEEP ,STABLE,NOT IN ANY DISTRESS.
[2017-11-29] MEDS: CEFEPIME 2 GM in IV D5W 100 ML IV SCH ×2 (04:26→12:01)
[2017-11-29] MEDS: HYDROCODONE/APAP 5/325MG 1 EACH TABLET PO PRN ×2 (05:54→17:41)
[2017-11-29 07:38] LABS: BASOPHILS % (AUTO) 0.3 % (0.0-2.0); EOSINOPHILS % (AUTO) 1.9 % (0.0-6.0); HEMATOCRIT 28 % (39-51); HEMOGLOBIN 9.3 g/dL (13.5-17.5); LYMPHOCYTES # (AUTO) 0.5 /CMM (0.8-4.8); LYMPHOCYTES % (AUTO) 4.7 % (20.0-44.0); MEAN CORPUSCULAR HGB CONC 34 g/dl (31.0-36.0); MEAN CORPUSCULAR VOLUME 91 fL (80-96); MONOCYTES # (AUTO) 0.7 /CMM (0.1-1.30); MONOCYTES % (AUTO) 6.6 % (2.0-12.0); NEUTROPHILS # (AUTO) 8.6 /CMM (1.8-8.9); NEUTROPHILS % (AUTO) 86.5 % (43.0-81.0); PLATELET COUNT (AUTO) 123 /CMM (150-450); RDW COEFFICIENT OF VARIATION 13.9 (11.5-15.0); RED BLOOD CELL COUNT(AUTO) 3.02 MIL/uL (4.5-6.0); WHITE BLOOD COUNT (AUTO) 9.9 K/uL (4.3-11.0)
[2017-11-29 07:52] LABS: CALCIUM, SERUM 8.6 mg/dL (8.5-10.1); CREATININE 0.8 mg/dL (0.6-1.3); POTASSIUM 3.4 mmol/L (3.5-5.1)
--- NOTE | 2017-11-29 08:00 | NUR ---
PRASHANT RN NOTE RECEIVE PT IN A BED. PT ALERT ORIENTED X3. PT HAS A 2L [employer] CANAL SAT 98%. PT ON TELE MONITOR HR 63 FR. PT HAS F/C TO GRAVITY WITH YELLOW COLOR URINE. PT HAS A IV TLC ON IVF ORDERED, BED IN LOWEST AND LOCKED POSITION , WITH CHEST TUBE TO WATER , STILL DRAINING SEROSANGUINEOUS DRAINAGE 10 ML AT THIS TIME, PLAN OD CARE DISCUSSED WITH PATIENT WILL CONT TO MONITOR CLOSELY , CALL LIGHT WITHIN REACH
[2017-11-29] MEDS: LACTOBACILLUS RHAMNOSUS GG 1 EACH CAP.SPRINK PO SCH ×2 (08:24→16:28)
--- NOTE | 2017-11-29 09:48 | NUR ---
PRASH[facility] RN NOTE DARLENE RN PORTRAIT CONSULTANT AT BEDSIDE OK TO REMOVE ARNETT CATH AND STATED THAT WILL ORDER STOOL SOFTENER ,
--- NOTE | 2017-11-29 09:50 | NUR ---
PRASHANT RN NOTE PT AT BEDSIDE , PATIENT ABLE TO AMBULATE IN HALLWAY WITH WALKER, TOLERATED WELL
--- NOTE | 2017-11-29 09:53 | NUR ---
PRASHANT RN NOTE RADIOLOGIST CALL STATED THAT PATIENT HAS NOW SMALL PNEUMOTHORAX, WILL CALL DR PAULINO
--- NOTE | 2017-11-29 10:46 | NUR ---
PRASHANT RN NOTE CHARGE NURSE CALLED TO DR PAULINO OFFICE TO REPORT SMALL PNEUMOTHORAX PER RADIOLOGIST, SPOKE WITH SPOT WORKER AND LEFT A MESSAGE, STATED THAT WILL RELAY TO DR MCCORMICK, WILL F\U
[2017-11-29] MEDS ORDERED: POTASSIUM CHLORIDE 20 MEQ TAB.PRT.SR PO SCH (11:30)
--- NOTE | 2017-11-29 13:15 | NUR ---
STAGECRAFT TEACHER NOTE ASSISTED TO BSC , ABLE TO MAKE BM SMALL AMT ALSO CALLED TO DR ANNY HUMPHREY LEFT A MESSAGE ABOUT RT SMALL PNEUMOTHORAX , SPOKE WITH ROLANDO CHAVARRIA THAT WILL TELL DR MCCORMICK
--- NOTE | 2017-11-29 14:40 | NUR ---
PRASH[facility] RN NOTES F/C REMOVED FOR ORDER AND 1000ML NOT3ED. KEEP CLEAN AND DRY. INSTRUCT THE PT TO USE CALL LIGHT FOR ASSISTANCE, OR USE URINAL. WILL CONTINUE TO MONITOR.
[2017-11-29] MEDS: DOCUSATE SODIUM 100 MG CAPSULE PO SCH (16:28)
--- NOTE | 2017-11-29 16:50 | NUR ---
PRASHANT RN NOTE DR MCCORMICK AT BEDSIDE STATED CONFECT CHEST TUBE TO SUCTION , DONE ORDERED
--- NOTE | 2017-11-29 17:05 | NUR ---
PRASHANT RNN NOTE DR AT BEDSIDE AGAIN CHECKING PATIENT ,STATED OK TO REMOVE SUCTION NOT THAT MUCH AIR LEAKAGE NOTED , STATED THAT WILL ORDER CHEST X RAY IN AM
--- NOTE | 2017-11-29 17:31 | NUR ---
MARKETING DEVELOPMENT REPRESENTATIVE NOTE TRANSFERRED TO ROOM 110 PER CHARGE NURSE ORDER
--- NOTE | 2017-11-29 17:43 | NUR ---
PRASHANT PALAFOX NOTE ABLE TO URINATE 400 ML OF YELLOW COLOR URINE AFTER ARNETT CATH IS REMOVED Addendum: 11/29/17 at 1806 by ESTEFANY TAMEZ RN C\O RT SIDE CHEST PAIN S\O CHEST TUBE PLACEMENT , NORCO PO GIVEN ORDERED WILL CONT TO MONITOR CLOSELY
--- NOTE | 2017-11-29 18:24 | NUR ---
BEHAVIORAL HEALTH THERAPIST NOTE HAVING DINNER ,ABLE TO EAT SELF , ALL NEEDS ATTENDED, FRIEND AT BEDSIDE ,WILL CONT TO MONITOR CLOSELY ,CONT TO HAVE CHEST TUBE TO WATER SEAL , STILL HAVE SEROSANGUINEOUS DRAINAGE , DR MCCORMICK AWARE OF IT
--- NOTE | 2017-11-29 20:00 | NUR ---
RN INITIAL TELE NOTE RECEIVE PT IN A BED. PT ALERT ORIENTED X3. PT HAS A 2L NASA CANAL SAT 98%. PT ON TELE MONITOR HR 60'S . PT HAS A IV TLC ON IVF ORDERED, BED IN LOWEST AND LOCKED POSITION , WITH CHEST TUBE TO WATER , STILL DRAINING SEROSANGUINEOUS DRAINAGE 80 ML AT THIS TIME, PLAN OD CARE DISCUSSED WITH PATIENT WILL CONT TO MONITOR CLOSELY , CALL LIGHT WITHIN REACH
[2017-11-29] MEDS: ZOLPIDEM TARTRATE 5 MG TABLET PO PRN (22:33)
[2017-11-30] VITALS: BP 138/76
--- NOTE | 2017-11-30 02:00 | NUR ---
PRESCHOOL TEACHER AIDE OPENING NOTE - Assignment change, moved from 3W to [facility] Patient was seen sleeping in bed, but awoke to noise/name. He is AAOx4, breathing on 2L O2 NC with no SOB, and no signs of acute distress. Central line in right subclavian is intact with dressing that is clean, dry, and intact. SL IV in left upper arm is intact and patent. Chest tube is draining blood from the right side. Patient has no immediate needs/concerns at this time. Call pillai is within reach. Will continue to monitor.
[2017-11-30 04:04] VITALS: BP 147/80
[2017-11-30 06:42] LABS: BASOPHILS % (AUTO) 0.1 % (0.0-2.0); EOSINOPHILS % (AUTO) 2.1 % (0.0-6.0); HEMATOCRIT 30 % (39-51); LYMPHOCYTES # (AUTO) 0.6 /CMM (0.8-4.8); LYMPHOCYTES % (AUTO) 6.9 % (20.0-44.0); MEAN CORPUSCULAR HGB CONC 34 g/dl (31.0-36.0); MEAN CORPUSCULAR VOLUME 92 fL (80-96); MONOCYTES # (AUTO) 0.7 /CMM (0.1-1.30); MONOCYTES % (AUTO) 7.5 % (2.0-12.0); NEUTROPHILS # (AUTO) 7.8 /CMM (1.8-8.9); NEUTROPHILS % (AUTO) 83.4 % (43.0-81.0); PLATELET COUNT (AUTO) 180 /CMM (150-450); RDW COEFFICIENT OF VARIATION 14.4 (11.5-15.0); RED BLOOD CELL COUNT(AUTO) 3.22 MIL/uL (4.5-6.0); WHITE BLOOD COUNT (AUTO) 9.3 K/uL (4.3-11.0)
[2017-11-30 06:58] LABS: CALCIUM, SERUM 8.7 mg/dL (8.5-10.1); CREATININE 0.9 mg/dL (0.6-1.3); POTASSIUM 3.2 mmol/L (3.5-5.1)
--- NOTE | 2017-11-30 07:45 | NUR ---
SCARF GLUER NOTE: RECEIVED PATIENT IN BED, AWAKE, ALERT AND VERBALLY RESPONSIVE. RESPIRATION EVEN AND UNLABORED SATURATING 98% IN ROOM AIR. PATIENT WAS NOTED WITH A CHEST TUBE ON THE (R) LATERAL SIDE AND IT WAS NOTED WITH SEROSANGUINEOUS DRAINAGE. DENIED ANY PAIN AT THIS TIME. HOB ELEVATED AND PATIENT WAS ON A HIGH JAMES'S POSITION. LOW BED AND LOCKED POSITION. CALL LIGHT WITHIN REACH. NEEDS ANTICIPATED.
[2017-11-30 08:00] VITALS: BP 128/69
[2017-11-30] MEDS: DOCUSATE SODIUM 100 MG CAPSULE PO SCH ×2 (08:26→16:24)
[2017-11-30] MEDS: LACTOBACILLUS RHAMNOSUS GG 1 EACH CAP.SPRINK PO SCH ×2 (08:26→16:24)
[2017-11-30] MEDS: HYDROCODONE/APAP 5/325MG 1 EACH TABLET PO PRN ×2 (08:27→23:50)
[2017-11-30] MEDS ORDERED: POTASSIUM CHLORIDE 20 MEQ TAB.PRT.SR PO ONE (11:00)
--- NOTE | 2017-11-30 11:00 | NUR ---
LEAD DATABASE ADMINISTRATOR NOTE: RECEIVED A CALL FROM DR. MCGHEE AND HE GAVE AN ORDER TO PUT THE PATIENT ON CONTINUOUS WALL SUCTION ON THE (R) SIDE CHEST TUBE AND DO A CHEST X-RAY AT 1230 TODAY. ORDER, NOTED AND CARRIED OUT. PATIENT MADE AWARE. PATIENT REMAINED ON ROOM AIR, SATURATING 96%. NO SHORTNESS OF BREATH NOTED.
[2017-11-30 12:00] VITALS: BP 153/69
--- NOTE | 2017-11-30 13:00 | NUR ---
CROZER OPERATOR NOTE: PATIENT WAS SEEN BY THE PHYSICAL THERAPIST AND WAS ABLE TO TOLERATE WALKING AROUND THE UNIT WITH 3L/MIN VIA NC OXYGEN. NO SHORTNESS OF BREATH NOTED BEFORE AND AFTER THERAPY.
[2017-11-30 16:00] VITALS: BP 138/69
--- NOTE | 2017-11-30 19:30 | NUR ---
MONOTYPIST NOTE: PATIENT ON STABLE CONDITION. (R) LATERAL CHEST TUBE NOTED ON CONTINUOUS WALL SUCTION PER DR. MCGHEE. REPORT GIVEN TO PM SHIFT NURSE FOR CONTINUITY OF CARE.
[2017-11-30 20:00] VITALS: BP_SYST 133; BP_DIAS 78; BP_DIAS 90
[2017-11-30] MEDS: ZOLPIDEM TARTRATE 5 MG TABLET PO PRN (22:35)
[2017-12-01] VITALS: BP 137/76
[2017-12-01 04:00] VITALS: BP_SYST 144; BP_SYST 160; BP_DIAS 76; BP_DIAS 77
--- NOTE | 2017-12-01 06:29 | NUR ---
RN CLOSING TELE NOTE ENDORSED PT IN A BED. PT ALERT ORIENTED X3. PT HAS A 2L NASA CANAL SAT 98%. PT ON TELE MONITOR HR 66'S . PT HAS A IV TLC ON IVF ORDERED, BED IN LOWEST AND LOCKED POSITION , WITH CHEST TUBE TO WATER , STILL DRAINING SEROSANGUINEOUS DRAINAGE 50 ML AT THIS TIME, PLAN OD CARE DISCUSSED WITH PATIENT WILL CONT TO MONITOR CLOSELY , CALL LIGHT WITHIN REACH
[2017-12-01 06:41] LABS: CALCIUM, SERUM 8.6 mg/dL (8.5-10.1); CREATININE 0.9 mg/dL (0.6-1.3); POTASSIUM 3.5 mmol/L (3.5-5.1)
[2017-12-01 06:44] LABS: BASOPHILS % (AUTO) 0.3 % (0.0-2.0); EOSINOPHILS % (AUTO) 4.5 % (0.0-6.0); HEMATOCRIT 29 % (39-51); HEMOGLOBIN 9.6 g/dL (13.5-17.5); LYMPHOCYTES # (AUTO) 0.9 /CMM (0.8-4.8); LYMPHOCYTES % (AUTO) 12.1 % (20.0-44.0); MEAN CORPUSCULAR HGB CONC 33 g/dl (31.0-36.0); MEAN CORPUSCULAR VOLUME 92 fL (80-96); MONOCYTES # (AUTO) 0.9 /CMM (0.1-1.30); MONOCYTES % (AUTO) 11.4 % (2.0-12.0); NEUTROPHILS # (AUTO) 5.5 /CMM (1.8-8.9); NEUTROPHILS % (AUTO) 71.7 % (43.0-81.0); PLATELET COUNT (AUTO) 210 /CMM (150-450); RDW COEFFICIENT OF VARIATION 14.6 (11.5-15.0); RED BLOOD CELL COUNT(AUTO) 3.13 MIL/uL (4.5-6.0); WHITE BLOOD COUNT (AUTO) 7.7 K/uL (4.3-11.0)
--- NOTE | 2017-12-01 07:30 | NUR ---
RN INITIAL NOTES\ RECEIVED PT AWAKE AND ALERT; ON O2 INH @ 2 L/MIN; DENIES PAIN AND SOB AT THIS TIME. RT CHEST TUBE IN PLACE ATTACHED TO CONT SUCTION; NOTED WITH SEROUSANGINOUS OUTPUT FROM ACID TANK CLEANER. RT CHEST TUBE DRESSING NOTED SOAKED; CHANGED WITH RN FROM ACID TANK CLEANER. CHEST TUBE SITE AND TUBING SECURED; CLAMP KEPT AT BEDSIDE. SINUS RHYTHM ON THE MONITOR. WILL MONITOR ACCORDINGLY.
[2017-12-01 08:00] VITALS: BP 143/84
--- NOTE | 2017-12-01 08:00 | NUR ---
0720 AM ROUNDS DURING ENDORSEMENT NOTED PT R-CHEST TUBE DRESSING SOAKED WET, D/T PT BEING MOBILE WITH BSC, ABLE TO AMBULATE, LEADING TO PULLING AND LOOSENING OF DRESSING AT SITE. REDRESSED SITE WITH ASSIST FROM AM RN LEIDY, O/P NOTED AT 88CC, AM RN TO MONITOR, PT CONT' ON CONTINOUS SUCTION, WELL TOLERATED, DENIES ANY DISCOMFORT AT THIS TIME.
--- NOTE | 2017-12-01 08:30 | NUR ---
RN NOTES IS USE= 5OO ML
[2017-12-01] MEDS: LACTOBACILLUS RHAMNOSUS GG 1 EACH CAP.SPRINK PO SCH ×2 (08:58→16:03)
[2017-12-01] MEDS: DOCUSATE SODIUM 100 MG CAPSULE PO SCH ×2 (08:58→16:03)
--- NOTE | 2017-12-01 11:42 | NUR ---
RN NOTES PT SEEN AND ASSESSED BY DR LITZY Contreras MD AWARE RE CHEST XRAY RESULT TODAY.
[2017-12-01 12:00] VITALS: BP_SYST 115; BP_DIAS 72; BP_DIAS 82
[2017-12-01 16:00] VITALS: BP 127/83
[2017-12-01] MEDS: HYDROCODONE/APAP 5/325MG 1 EACH TABLET PO PRN ×2 (18:52→23:33)
--- NOTE | 2017-12-01 18:53 | NUR ---
RN CLOSING NOTES PT AWAKE AND ALERT WITH NO DISTRESS. DENIES SOB. RT CHEST TUBE TO [address] SECURED WITH CLEAN AND INTACT DRESSING, WITH LIGHT SEROSANGINOUS OUTPUT. SAFETY ENSURED AT ALL TIMES. PRN MED GIVEN NEEDED. MEDS GIVEN AND ALL NEEDS ATTENDED. ENDORSED TO NEXT SHIFT RN IN STABLE CONDITION.
--- NOTE | 2017-12-01 19:30 | NUR ---
MS/RN NOTES RECEIVED PT. SITTING UP IN BED. PT. IS AWAKE, ALERT AND ORIENTED X4. BREATHING EVEN AND UNLABORED ON 2LPM O2 VIA NC. NO SOB, RESPIRATORY DISTRESS OR COMPLAINTS OF PAIN NOTED AT THIS TIME. PT. WITH RIGHT LATERAL CHEST TUBE PRESENT, PATENT AND INTACT TO WATER SEAL WITH SEROSANGUINOUS OUTPUT NOTED. PT. WITH RIGHT SUBCLAVIAN CENTRAL LINE TRIPLE LUMEN PRESENT, PATENT AND INTACT. PT. WITH LEFT UPPER ARM 20 GAUGE IV SALINE LOCK PRESENT, PATENT AND INTACT. PT. WITH FAMILY MEMBER PRESENT AT BEDSIDE. BED LOCKED AND IN LOWEST POSITION, SIDE RAILS UP X2, CALL LIGHT WITHIN REACH, WILL CONTINUE TO MONITOR.
[2017-12-01 20:00] VITALS: BP 123/87
[2017-12-01] MEDS: ZOLPIDEM TARTRATE 5 MG TABLET PO PRN (22:55)
[2017-12-02] VITALS: BP 140/80
[2017-12-02] MEDS: HYDROMORPHONE 1 MG/1 ML DISP.SYRIN IV PRN (02:53)
[2017-12-02 04:00] VITALS: BP 140/81
--- NOTE | 2017-12-02 07:04 | NUR ---
MS/RN NOTES PT. IS LYING IN BED RESTING. BREATHING EVEN AND UNLABORED ON 2LPM O2 VIA NC. NO SOB, RESPIRATORY DISTRESS OR COMPLAINTS OF PAIN NOTED AT THIS TIME. PT. WITH RIGHT LATERAL CHEST TUBE PRESENT, PATENT AND INTACT TO WATER SEAL WITH 10 ML SEROSANGUINOUS OUTPUT NOTED THROUGHOUT SHIFT. PT. WITH RIGHT SUBCLAVIAN CENTRAL LINE TRIPLE LUMEN PRESENT, PATENT AND INTACT. PT. WITH LEFT UPPER ARM 20 GAUGE IV SALINE LOCK PRESENT, PATENT AND INTACT. PT. WITH FAMILY MEMBER PRESENT AT BEDSIDE. ALL PT. NEEDS MET. BED LOCKED AND IN LOWEST POSITION, SIDE RAILS UP X2, CALL LIGHT WITHIN REACH, WILL ENDORSE TO DAYSHIFT NURSE FOR CONTINUITY OF CARE.
[2017-12-02 07:57] LABS: BASOPHILS # (AUTO) 0.2 /CMM (0.0-0.2); BASOPHILS % (AUTO) 0.8 % (0.0-2.0); EOSINOPHILS % (AUTO) 1.2 % (0.0-6.0); HEMATOCRIT 32 % (39-51); HEMOGLOBIN 10.6 g/dL (13.5-17.5); LYMPHOCYTES # (AUTO) 0.6 /CMM (0.8-4.8); LYMPHOCYTES % (AUTO) 2.6 % (20.0-44.0); MEAN CORPUSCULAR HGB CONC 33 g/dl (31.0-36.0); MEAN CORPUSCULAR VOLUME 91 fL (80-96); MONOCYTES # (AUTO) 1.4 /CMM (0.1-1.30); MONOCYTES % (AUTO) 6.3 % (2.0-12.0); NEUTROPHILS # (AUTO) 19.9 /CMM (1.8-8.9); NEUTROPHILS % (AUTO) 89.1 % (43.0-81.0); PLATELET COUNT (AUTO) 294 /CMM (150-450); RED BLOOD CELL COUNT(AUTO) 3.54 MIL/uL (4.5-6.0); WHITE BLOOD COUNT (AUTO) 22.3 K/uL (4.3-11.0)
[2017-12-02 08:00] VITALS: BP 148/77
[2017-12-02 08:06] LABS: CALCIUM, SERUM 8.7 mg/dL (8.5-10.1); CREATININE 0.9 mg/dL (0.6-1.3); POTASSIUM 3.5 mmol/L (3.5-5.1)
--- NOTE | 2017-12-02 08:10 | NUR ---
MS RN NOTES RECEIVED PT ON BED.ALERT AND ORIENTED X 4.ON O2 3L VIA NASAL CANNULA WITH O2 SATURATION 96%.NO SOB AND ACUTE DISTRESS NOTED.NOTED WITH MODERATE PAIN.CHEST TUBE IS IN RIGHT SIDE OF CHEST,SITE IS CLEAN,DRY AND INTACT.BED IS IN LOW POSITION AND LOCKED.CALL LIGHT IS WITHIN REACH.WILL CONTINUE TO MONITOR.
[2017-12-02] MEDS: HYDROCODONE/APAP 5/325MG 1 EACH TABLET PO PRN ×2 (09:05→20:10)
[2017-12-02] MEDS: DOCUSATE SODIUM 100 MG CAPSULE PO SCH ×2 (09:06→16:36)
[2017-12-02] MEDS: LACTOBACILLUS RHAMNOSUS GG 1 EACH CAP.SPRINK PO SCH ×2 (09:06→16:36)
[2017-12-02 09:13] LABS: BAND % (MANUAL) 4 % (0.0-5.0); LYMPHOCYTES % (MANUAL) 3 % (16-48); MONOCYTES % (MANUAL) 3 % (0-11.0); NEUTROPHILS % (MANUAL) 90 (42-76)
--- NOTE | 2017-12-02 11:08 | NUR ---
MS RN NOTES NOTED DR DARLENE THOMPSON ABOUT ELEVATED TEMPERATURE 100.2 INITIALLY AND LATER 99.7 AND INCREASED WBC.NNO
--- NOTE | 2017-12-02 11:20 | NUR ---
MS RN NOTES ASSESSED THE PT ,CHEST TUBE REMOVED AT BED SIDE.PRESSURE DRESSING APPLIED.PT TOLERATED WELL AND NO BLEEDING NOTED.DENIES PAIN AND SOB.
[2017-12-02] MEDS: ACETAMINOPHEN 325 MG TABLET PO PRN (15:52)
[2017-12-02 16:00] VITALS: BP 138/84
--- NOTE | 2017-12-02 16:10 | NUR ---
RN NOTES PT WITH TEMP 101.8; REFUSED ICE PACKS, [facility] IN THE UNIT AND NOTIFIED RE PTS CURRENT TEMP
[2017-12-02] MEDS ORDERED: FEE PK DOSING 1 MIN EA MC ONE (16:49)
[2017-12-02] MEDS ORDERED: ACETAMINOPHEN 325 MG TABLET PO PRN (17:00)
[2017-12-02] MEDS: MEROPENEM 500 MG in IV NS 0.9% 50 ML IV SCH (18:24)
[2017-12-02] MEDS: VANCOMYCIN 1 GM in IV D5W 250 ML IV SCH (19:14)
--- NOTE | 2017-12-02 19:44 | NUR ---
MS RN CLOSING NOTES PT IS ON BED.NOTED WITH INCREASED TEMPERATURE AND IT SUBSIDING DOWN,NOTIFIED DR AND STARTED THE ANTIBIOTICS.CHEST TUBE IS OUT AND NO COMPLICATIONS NOTED AND NO BLEEDING FROM CHEST TUBE SITE.ENDORSED TO NEXT SHIFT RN FOR CONTINUITY OF CARE AND TO MONITOR THE S/P CHEST TUBE SITE .
[2017-12-02 20:00] VITALS: BP 143/81
[2017-12-02] MEDS: ZOLPIDEM TARTRATE 5 MG TABLET PO PRN (22:47)
[2017-12-03] MEDS: VANCOMYCIN 1 GM in IV D5W 250 ML IV SCH ×3 (01:13→17:57)
[2017-12-03] MEDS: MEROPENEM 500 MG in IV NS 0.9% 50 ML IV SCH ×3 (01:13→17:02)
[2017-12-03] MEDS: HYDROCODONE/APAP 5/325MG 1 EACH TABLET PO PRN ×2 (03:11→23:10)
[2017-12-03 04:00] VITALS: BP 151/87
[2017-12-03] MEDS: ACETAMINOPHEN 325 MG TABLET PO PRN ×2 (05:26→16:28)
[2017-12-03 06:17] LABS: EOSINOPHILS % (AUTO) 0.8 % (0.0-6.0); HEMATOCRIT 31 % (39-51); HEMOGLOBIN 10.2 g/dL (13.5-17.5); LYMPHOCYTES # (AUTO) 0.5 /CMM (0.8-4.8); LYMPHOCYTES % (AUTO) 2.1 % (20.0-44.0); MEAN CORPUSCULAR HGB CONC 33 g/dl (31.0-36.0); MEAN CORPUSCULAR VOLUME 93 fL (80-96); MONOCYTES # (AUTO) 1.7 /CMM (0.1-1.30); MONOCYTES % (AUTO) 6.6 % (2.0-12.0); NEUTROPHILS # (AUTO) 23.7 /CMM (1.8-8.9); NEUTROPHILS % (AUTO) 90.5 % (43.0-81.0); PLATELET COUNT (AUTO) 322 /CMM (150-450); RDW COEFFICIENT OF VARIATION 14.5 (11.5-15.0); RED BLOOD CELL COUNT(AUTO) 3.37 MIL/uL (4.5-6.0); WHITE BLOOD COUNT (AUTO) 26.2 K/uL (4.3-11.0)
[2017-12-03 06:46] LABS: POTASSIUM 3.3 mmol/L (3.5-5.1)
[2017-12-03 08:00] VITALS: BP 141/74
--- NOTE | 2017-12-03 08:00 | NUR ---
MS RN NOTES PATIENT IN BED RESTING NO SOB OR ACUTE DISTRESS NOTED. BED IN LOW LOCKED POSITION. CALL LIGHT WITHIN REACH. CENTRAL LINE INTACT PATENT. WILL CONTINUE TO MONITOR.
[2017-12-03] MEDS: LACTOBACILLUS RHAMNOSUS GG 1 EACH CAP.SPRINK PO SCH ×2 (08:54→16:28)
[2017-12-03] MEDS: DOCUSATE SODIUM 100 MG CAPSULE PO SCH ×2 (08:54→16:28)
[2017-12-03] MEDS ORDERED: POTASSIUM CHLORIDE 20 MEQ TAB.PRT.SR PO ONE (09:00)
[2017-12-03 16:00] VITALS: BP 143/83
--- NOTE | 2017-12-03 16:00 | NUR ---
MS RN NOTES PATIENT NOTED WITH TEMP OF 102.0 DARLENE THOMPSON MADE AWARE ORDERS TO GIVE TYLENOL AND COOLING MEASURES.
--- NOTE | 2017-12-03 17:00 | NUR ---
MS RN NOTES PATIENT TEMP RECHECKED NOTED 99.6.
--- NOTE | 2017-12-03 18:00 | NUR ---
MS RN NOTES PATIENT IN BED RESTING NO SOB OR ACUTE DISTRESS NOTED. ALL DUE MEDICATIONS ADMINISTERED. ALL NEEDS MET WILL ENDORSE TO PM SHIFT.
[2017-12-03] MEDS: FLUCONAZOLE (100 MG) 100 MG TABLET PO SCH (18:33)
[2017-12-03 20:00] VITALS: BP 134/80
[2017-12-03] MEDS: ZOLPIDEM TARTRATE 5 MG TABLET PO PRN (23:10)
[2017-12-04] MEDS: MEROPENEM 500 MG in IV NS 0.9% 50 ML IV SCH ×3 (00:29→17:07)
[2017-12-04] MEDS: VANCOMYCIN 1 GM in IV D5W 250 ML IV SCH ×3 (00:29→17:08)
[2017-12-04 04:00] VITALS: BP 132/81
--- NOTE | 2017-12-04 06:46 | NUR ---
RN NOTE PATIENT IS STABLE, NO PAIN OR DISCOMFORT NOTED, NO SOB NOTED, ALL SAFETY MEASURES TAKEN, WILL ENDORSE TO AM SHIFT TO CONTINUE CARE
[2017-12-04] MEDS: HYDROCODONE/APAP 5/325MG 1 EACH TABLET PO PRN ×2 (06:56→23:00)
[2017-12-04 07:18] LABS: CALCIUM, SERUM 8.9 mg/dL (8.5-10.1); POTASSIUM 3.5 mmol/L (3.5-5.1)
[2017-12-04 08:00] VITALS: BP 133/77
[2017-12-04] MEDS: DOCUSATE SODIUM 100 MG CAPSULE PO SCH ×2 (09:00→17:08)
[2017-12-04] MEDS: LACTOBACILLUS RHAMNOSUS GG 1 EACH CAP.SPRINK PO SCH ×2 (09:00→17:08)
[2017-12-04 10:18] LABS: BASOPHILS % (AUTO) 0.3 % (0.0-2.0); EOSINOPHILS % (AUTO) 2.2 % (0.0-6.0); HEMATOCRIT 30 % (39-51); HEMOGLOBIN 9.9 g/dL (13.5-17.5); LYMPHOCYTES % (AUTO) 5.6 % (20.0-44.0); MEAN CORPUSCULAR HGB CONC 33 g/dl (31.0-36.0); MEAN CORPUSCULAR VOLUME 92 fL (80-96); MONOCYTES # (AUTO) 1.4 /CMM (0.1-1.30); MONOCYTES % (AUTO) 8.1 % (2.0-12.0); NEUTROPHILS # (AUTO) 14.9 /CMM (1.8-8.9); NEUTROPHILS % (AUTO) 83.8 % (43.0-81.0); PLATELET COUNT (AUTO) 374 /CMM (150-450); RDW COEFFICIENT OF VARIATION 14.2 (11.5-15.0); WHITE BLOOD COUNT (AUTO) 17.8 K/uL (4.3-11.0)
[2017-12-04 11:39] LABS: BAND % (MANUAL) 1 % (0.0-5.0); NEUTROPHILS % (MANUAL) 78 (42-76)
[2017-12-04 11:40] LABS: EOSINOPHILS % (MANUAL) 3 % (0-4); LYMPHOCYTES % (MANUAL) 5 % (16-48); MONOCYTES % (MANUAL) 13 % (0-11.0)
[2017-12-04 16:00] VITALS: BP 148/72
[2017-12-04] MEDS: FLUCONAZOLE (100 MG) 100 MG TABLET PO SCH (17:08)
--- NOTE | 2017-12-04 19:11 | NUR ---
MS RN CLOSING NOTES PATIENT IN BED RESTING NO SOB OR ACUTE DISTRESS NOTED. ALL DUE MEDICATIONS ADMINISTERED. ALL NEEDS MET WILL ENDORSE TO NEXT SHIFT FOR LEIDY. POSSIBLE D/C TOMORROW .
[2017-12-04 20:00] VITALS: BP 151/74
--- NOTE | 2017-12-04 20:42 | NUR ---
RN OPENING NOTES RECEIVED REPORT FROM AM RN. PATIENT A/A/O X4, ABLE TO MAKE NEEDS KNOWN. BREATHING EVEN & UNLABORED, TOLERATING ROOM AIR. DENIES ANY SOB OR DIFFICULTY BREATHING. RADIAL PULSES PRESENT. RIGHT AC IV #22 INTACT & PATENT W/ DRESSING CDI, SALINE LOCKED. DENIES ANY PAIN OR DISCOMFORT @ THIS TIME. SAFETY MEASURES IN PLACE W/ BED ALARM ON & CALL LIGHT WITHIN REACH. INSTRUCTED TO CALL FOR ASSISTANCE. ABLE TO AMBULATE TO BATHROOM INDEPENDENTLY. WILL CONTINUE TO MONITOR.
[2017-12-05] MEDS: ZOLPIDEM TARTRATE 5 MG TABLET PO PRN (00:07)
[2017-12-05 04:00] VITALS: BP 109/61
[2017-12-05 06:51] LABS: BASOPHILS % (AUTO) 0.1 % (0.0-2.0); EOSINOPHILS % (AUTO) 3.7 % (0.0-6.0); HEMATOCRIT 31 % (39-51); HEMOGLOBIN 10.3 g/dL (13.5-17.5); LYMPHOCYTES # (AUTO) 1.3 /CMM (0.8-4.8); LYMPHOCYTES % (AUTO) 9.3 % (20.0-44.0); MEAN CORPUSCULAR HGB CONC 33 g/dl (31.0-36.0); MEAN CORPUSCULAR VOLUME 92 fL (80-96); MONOCYTES # (AUTO) 1.1 /CMM (0.1-1.30); MONOCYTES % (AUTO) 8.1 % (2.0-12.0); NEUTROPHILS # (AUTO) 10.7 /CMM (1.8-8.9); NEUTROPHILS % (AUTO) 78.8 % (43.0-81.0); PLATELET COUNT (AUTO) 485 /CMM (150-450); RDW COEFFICIENT OF VARIATION 14.2 (11.5-15.0); WHITE BLOOD COUNT (AUTO) 13.6 K/uL (4.3-11.0)
--- NOTE | 2017-12-05 07:15 | NUR ---
HEAD CHAR FILTER TANK TENDER OPENING NOTE PATIENT RESTING IN BED IN STABLE CONDITION, ON ROOM AIR. ABLE TO MAKE NEEDS KNOWN. NO COMPLAINT OF PAIN. IV SITE ON RIGHT AC INTACT SALINE LOCK. BED IN LOW AND LOCKED POSITION, WILL CONTINUE TO MONITOR.
[2017-12-05 07:20] LABS: CALCIUM, SERUM 9.1 mg/dL (8.5-10.1); CREATININE 0.9 mg/dL (0.6-1.3); POTASSIUM 3.8 mmol/L (3.5-5.1)
[2017-12-05 08:00] VITALS: BP 129/74
[2017-12-05] MEDS: LACTOBACILLUS RHAMNOSUS GG 1 EACH CAP.SPRINK PO SCH (08:48)
[2017-12-05] MEDS: DOCUSATE SODIUM 100 MG CAPSULE PO SCH (08:48)
[2017-12-05] MEDS ORDERED: LEVO500T75 PO (10:32)
--- NOTE | 2017-12-05 11:20 | NUR ---
SEMICONDUCTOR PACKAGES PLATEMAKER CLOSING NOTE PATIENT PREPARED FOR DISCHARGE, PAPERWORK COMPLETED, SIGNED AND EXPLAINED AND GIVEN TO PATIENT. PATIENT STATES UNDERSTANDING. IV SITE ON RIGHT ANTECUBITAL REMOVED, NO SIGNS OF INFECTION OR ACTIVE BLEEDING. BELONGINGS LIST COMPLETED AND SIGNED. PATIENT LEFT THE FACILITY AT 11:00 WITH GIRLFRIEND AND FRIEND AND BELONGINGS IN STABLE CONDITION.
== END 2017-12-05 11:00 | disposition home or self-care (01) | DRG 121 ==
LOC: ER 20:10 → TELE-TD 23:08 → ICU 11-26 13:37 → TELE-TD 11-28 17:23 → MEDSG1 11-29 13:45 → TELE-TD 11-29 13:48 → TELE1 11-29 16:45 → MEDSG1 12-01 08:38
PROVIDERS: ADMIT Internal Medicine; ATTEND Internal Medicine
PROC: 04HK33Z Insertion of Infusion Device into Right Femoral Artery, Percutaneous Approach (ICD-10-PCS; principal; 2017-11-26 16:00)
PROC: 30233N1 Transfusion of Nonautologous Red Blood Cells into Peripheral Vein, Percutaneous Approach (ICD-10-PCS; principal; 2017-11-26 16:00)
PROC: 0JHD3XZ Insertion of Tunneled Vascular Access Device into Right Upper Arm Subcutaneous Tissue and Fascia, Percutaneous Approach (ICD-10-PCS; principal; 2017-11-26 16:00)
PROC: 05H533Z Insertion of Infusion Device into Right Subclavian Vein, Percutaneous Approach (ICD-10-PCS; principal; 2017-11-26 16:00)
PROC: 0W9940Z Drainage of Right Pleural Cavity with Drainage Device, Percutaneous Endoscopic Approach (ICD-10-PCS; principal; 2017-11-26 16:00)
PROC: 0BH17EZ Insertion of Endotracheal Airway into Trachea, Via Natural or Artificial Opening (ICD-10-PCS; principal; 2017-11-26 16:00)
PROC: B546ZZA Ultrasonography of Right Subclavian Vein, Guidance (ICD-10-PCS; principal; 2017-11-26 16:00)
PROC: 30233K1 Transfusion of Nonautologous Frozen Plasma into Peripheral Vein, Percutaneous Approach (ICD-10-PCS; principal; 2017-11-26 16:00)
PROC: 0BCK4ZZ Extirpation of Matter from Right Lung, Percutaneous Endoscopic Approach (ICD-10-PCS; principal; 2017-11-26 16:00)
PROC: 0BQC4ZZ Repair Right Upper Lung Lobe, Percutaneous Endoscopic Approach (ICD-10-PCS; principal; 2017-11-26 16:00)
PROC: 5A1935Z Respiratory Ventilation, Less than 24 Consecutive Hours (ICD-10-PCS; principal; 2017-11-26 16:00)
DX: J94.2 Hemothorax (principal); R57.8 Other shock; E43 Unspecified severe protein-calorie malnutrition; J96.01 Acute respiratory failure with hypoxia; J96.02 Acute respiratory failure with hypercapnia; J18.9 Pneumonia, unspecified organism; E44.1 Mild protein-calorie malnutrition; D62 Acute posthemorrhagic anemia; J90 Pleural effusion, not elsewhere classified; J93.9 Pneumothorax, unspecified; F17.200 Nicotine dependence, unspecified, uncomplicated; J45.909 Unspecified asthma, uncomplicated; D64.9 Anemia, unspecified; Z68.1 Body mass index [BMI] 19.9 or less, adult; D72.829 Elevated white blood cell count, unspecified; E87.6 Hypokalemia; E83.51 Hypocalcemia
CPT/HCPCS: 31720; 32551; 36415; 36600; 71045-TC; 71260-TC; 80048-TC; 80053-TC; 80061-TC; 80202-TC; 82803-TC; 83605-TC; 83735-TC; 84100-TC; 84484-TC; 85025-TC; 85027-TC; 85378-TC; 85385-TC; 85730-TC; 86850-TC; 86921-TC; 87040-TC; 87070-TC; 87081-TC; 87086-TC; 88305-TC; 94002-TC; 94003-TC; 94640-TC; 94760-TC; 94799-TC; 97110-TC; 97116-TC; 97530-TC; 99082-TC; A4216; A4606; A6253; A6402; A6403; J0610; J0690; J0692; J1100; J1170; J2175; J2185; J2405; J2704; J3010; J3370; J3475; J3480; J3490; J7030; J7040; J7050; J7060; L3908; P9016-BL; P9017-BL; Q2036; Q9967; Z7610

== ENCOUNTER 2017-12-16 17:05 | Emergency (ER) | payer MEDICAID ==
[~2017-12-16] VITALS: Ht 182.9 cm; Wt 74.8 kg
[~2017-12-16 17:05] MED LIST: LEVO500T75 PO
[2017-12-16 18:42] VITALS: BP 124/64
--- NOTE | 2017-12-16 18:42 | NUR ---
Patient discharged to home in stable condition. Written and verbal after care instructions given. Patient verbalizes understanding of instruction.
== END 2017-12-16 18:42 | disposition home or self-care (01) ==
LOC: ER 17:07
DX: Z48.01 Encounter for change or removal of surgical wound dressing (principal); F17.200 Nicotine dependence, unspecified, uncomplicated; G89.29 Other chronic pain; Z98.890 Other specified postprocedural states
CPT/HCPCS: A4606; Z7610

== ENCOUNTER 2020-05-18 14:03 | Emergency (ER) | payer MEDICAID, OTHER ==
[~2020-05-18] VITALS: Ht 190.5 cm; Wt 79.4 kg
[~2020-05-18 14:03] MED LIST changes: +LEVO500T23 PO; -LEVO500T75 PO
--- NOTE | 2020-05-18 14:03 | NUR ---
PT BIB SELF C/O ON AND OFF HEADACHE FOR YRS. PT IS AAOX4, NOT IN RESPIRATORY DISTRESS, HOOKED TO ROVING TELLER, KEPT RESTED AND COMFORTABLE. WILL CONTINUE TO MONITOR.
--- NOTE | 2020-05-18 14:38 | NUR ---
PT SEEN AND EXAMINED BY .
[2020-05-18] MEDS ORDERED: IV NS 0.9% 1,000 ML BAG IV ONE (15:00)
[2020-05-18] MEDS ORDERED: METOCLOPRAMIDE HCL 10 MG/2 ML VIAL IV ONE (15:00)
--- NOTE | 2020-05-18 15:10 | NUR ---
IV LINE ESTABLISHED.
[2020-05-18] MEDS ORDERED: METOCLOPRAMIDE HCL 10 MG/2 ML VIAL ONE (15:15)
[2020-05-18] MEDS ORDERED: NAPR-1164 PO (17:12)
[2020-05-18] MEDS ORDERED: CYCL10TA9 PO (17:14)
[2020-05-18 17:19] VITALS: BP 134/81
--- NOTE | 2020-05-18 17:19 | NUR ---
IV removed. Catheter intact and site benign. Pressure and 4x4 applied to site. No bleeding noted. Patient discharged to home in stable condition. Written and verbal after care instructions given. Patient verbalizes understanding of instruction.
[2020-05-18] MEDS ORDERED: IBUPROFEN 600 MG TABLET PO ONE (17:30)
== END 2020-05-18 17:20 | disposition home or self-care (01) ==
LOC: ER 14:03
DX: R51.9 Headache, unspecified (principal); M62.838 Other muscle spasm; F17.200 Nicotine dependence, unspecified, uncomplicated; Z98.890 Other specified postprocedural states; Z79.899 Other long term (current) drug therapy
CPT/HCPCS: 70450; 96361; 96374; 99284; J2765; J7030

== ENCOUNTER 2020-05-28 18:38 | Emergency (ER) | payer OTHER ==
[~2020-05-28] VITALS: Ht 190.5 cm; Wt 79.4 kg
[~2020-05-28 18:38] MED LIST changes: +CYCL10TA9 PO; +NAPR-1164 PO
[2020-05-28 18:40] VITALS: BP 135/84
[2020-05-28] MEDS ORDERED: ACET-2605 PO (19:55)
== END 2020-05-28 20:07 | disposition home or self-care (01) ==
LOC: ER 18:43
DX: R09.1 Pleurisy (principal); J45.909 Unspecified asthma, uncomplicated; F17.210 Nicotine dependence, cigarettes, uncomplicated; Z98.890 Other specified postprocedural states; Z79.899 Other long term (current) drug therapy
CPT/HCPCS: 71045-TC

== ENCOUNTER 2020-09-16 23:13 | Emergency (ER) | payer OTHER ==
[~2020-09-16] VITALS: Ht 190.5 cm; Wt 79.4 kg
[~2020-09-16 23:13] MED LIST changes: +ACET-2605 PO
[2020-09-16 23:15] VITALS: BP 119/70
--- NOTE | 2020-09-17 00:33 | NUR ---
xray at bedside
[2020-09-17] MEDS ORDERED: IBUP-1957 PO (01:11)
[2020-09-17] MEDS ORDERED: IBUPROFEN 400 MG TABLET ONE (01:16)
--- NOTE | 2020-09-17 01:17 | NUR ---
Patient discharged to home in stable condition. Written and verbal after care instructions given. Patient verbalizes understanding of instruction.Pt ambulatory with a steady gait
[2020-09-17] MEDS ORDERED: IBUPROFEN 400 MG TABLET PO ONE (01:30)
== END 2020-09-17 01:23 | disposition home or self-care (01) ==
LOC: ER 23:15
DX: R07.89 Other chest pain (principal); R07.81 Pleurodynia; G89.29 Other chronic pain; F17.200 Nicotine dependence, unspecified, uncomplicated; Z98.890 Other specified postprocedural states; Z79.899 Other long term (current) drug therapy
CPT/HCPCS: 71100-TC

== ENCOUNTER 2021-08-09 19:26 | Emergency (ER) | payer OTHER ==
[~2021-08-09] VITALS: Ht 190.5 cm; Wt 79.4 kg
[~2021-08-09 19:26] MED LIST changes: +IBUP-1957 PO
[2021-08-09 21:01] VITALS: BP 149/91
--- NOTE | 2021-08-09 21:08 | NUR ---
HEAD CAGER Addendum: 08/09/21 at 2108 by MAUREEN HEAD CAGER AT PT'S BEDSIDE
== END 2021-08-09 22:39 | disposition home or self-care (01) ==
LOC: ER 19:34
DX: M54.50 Low back pain, unspecified (principal); G89.29 Other chronic pain; F17.200 Nicotine dependence, unspecified, uncomplicated; Z79.899 Other long term (current) drug therapy
CPT/HCPCS: 71045-TC

== ENCOUNTER 2021-11-10 11:41 | Emergency (ER) | payer OTHER ==
[~2021-11-10] VITALS: Ht 190.5 cm; Wt 88.5 kg
[2021-11-10 13:25] VITALS: BP 159/87
== END 2021-11-10 16:42 | disposition home or self-care (01) ==
LOC: ER 11:45
DX: U07.1 COVID-19 (principal); M54.50 Low back pain, unspecified; R05.9 Cough, unspecified; G89.29 Other chronic pain; F17.200 Nicotine dependence, unspecified, uncomplicated; Z60.2 Problems related to living alone; Z79.899 Other long term (current) drug therapy
CPT/HCPCS: 71045-TC

== ENCOUNTER 2024-01-08 12:31 | Emergency (ER) | payer OTHER ==
[~2024-01-08] VITALS: Ht 190.5 cm; Wt 88.9 kg
[2024-01-08] MEDS ORDERED: TDAP [DIPH/PERTUSSIS/TET] 0.5 ML VIAL IM ONE (13:49)
[2024-01-08] MEDS ORDERED: AMOX-430 PO (13:49)
[2024-01-08] MEDS: TDAP [DIPH/PERTUSSIS/TET] 0.5 ML VIAL IM ONE (13:55)
[2024-01-08 13:59] VITALS: BP 140/88; TEMP 98; O2SAT 100
== END 2024-01-08 14:01 | disposition home or self-care (01) ==
LOC: ER 12:35
DX: S71.151A Open bite, right thigh, initial encounter (principal); F17.200 Nicotine dependence, unspecified, uncomplicated; Z79.1 Long term (current) use of non-steroidal anti-inflammatories (NSAID); Z98.890 Other specified postprocedural states; Z87.09 Personal history of other diseases of the respiratory system; Z83.79 Family history of other diseases of the digestive system; Z60.2 Problems related to living alone; W54.0XXA Bitten by dog, initial encounter; Y93.89 Activity, other specified; Y92.89 Other specified places as the place of occurrence of the external cause; Y99.8 Other external cause status
CPT/HCPCS: 99283; 90471; 90715; A6403